=== PATIENT | female | born 1970 | race Caucasian/White ===

== ENCOUNTER 2016-05-01 11:52 | Emergency (ER) | payer MEDICAID ==
[~2016-05-01] VITALS: Ht 149.9 cm; Wt 71.5 kg
[~2016-05-01 11:52] MED LIST: CEPH-443 PO; FER325 PO; HYDR-3498 PO; NAPR-260 PO; PANT40TA3 PO; ULT50 PO; ZOLP5TAB6 PO
[2016-05-01 12:16] VITALS: Ht 149.9 cm; Wt 71.5 kg
[2016-05-01] MEDS ORDERED: traMADol 50 MG TAB PO ONE (13:00)
[2016-05-01] MEDS ORDERED: ONDANSETRON (ODT) 4 MG TAB ODT STA (13:05)
--- NOTE | 2016-05-01 13:05 | ERD ---
ER Documentation Chief Complaint Date/Time DATE: 05/01/16 TIME: 13:01 Chief Complaint headache, neck and shoulder pain x 2 months HPI Patient is a 45-year-old female here with a headache, neck pain, and right shoulder pain 2 months. She has nausea and photophobia associated with her headache. She denies any injury, accident, trauma, or fall. The onset of her pain was gradual and has been worsening over the last month. She denies sudden onset or thunderclap onset of her headache. She has tried taking Motrin without much relief. She states that she has never had a headache in her life. She denies chest pain, difficulty breathing, shortness of breath, visual changes, changes in mentation, changes in gait, or any other symptoms. Last menstrual period 04/28/16. ROS All systems reviewed and are negative except as per history of present illness. Medications Home Meds Active Scripts Ondansetron Hcl* (Zofran*) 4 Mg Tablet, 4 MG PO Q6H for NAUSEA AND/OR VOMITING, #9 TAB Prov:YISSEL MOHAUMD, [employer] 05/01/16 Tramadol HCl (Tramadol HCl) 50 Mg Tablet, 50 MG PO Q6 Y for PAIN, #9 TAB Prov:YISSEL MOHAMUD, [employer] 05/01/16 Ibuprofen* (Motrin*) 600 Mg Tab, 600 MG PO Q6, #30 TAB Prov:YISSEL MOHAMUD, [employer] 05/01/16 Ferrous Sulfate* (Ferrous Sulfate*) 325 Mg Tabec, 325 MG PO TID, #100 TAB Prov:BRAXTON SEYMOUR MD 12/31/14 Cephalexin* (Keflex*) 500 Mg Capsule, 500 MG PO QID for 5 Days, CAP Prov:BRAXTON SEYMOUR MD 12/31/14 Hydrocodone Bit-Acetaminophen* (Eads*) 5-325 Mg Tab, 1 TAB PO Q6 Y for PAIN, # 20 TAB Prov:BRAXTON SEYMOUR MD 12/31/14 Pantoprazole* (Protonix*) 40 Mg Tablet.dr, 40 MG PO DAILY, #30 TAB Prov:BRAXTON SEYMOUR MD 12/31/14 Tramadol HCl (Tramadol HCl) 50 Mg Tab, 50 MG PO Q6 Y for PAIN, #20 TAB Prov:VIRI ALONSO NP 12/14/14 Naproxen* (Naprosyn*) 500 Mg Tablet, 500 MG PO BID Y for PAIN AND/OR INFLAMMATION, #30 TAB Prov:VIRI ALONSO [employer] 12/14/14 Zolpidem Tartrate* (Zolpidem Tartrate*) 5 Mg Tablet, 5 MG PO HS Y for 10 Days, TAB Prov:MIRACLEBENOITDANIELA C 11/26/14 Tramadol HCl (Tramadol HCl) 50 Mg Tab, 50 MG PO Q4 Y for PAIN, #20 TAB Prov:DANIELA RAUSCH C 11/26/14 Reported Medications [None] No Conflict Check 06/12/12 Allergies Allergies: Coded Allergies: Penicillins (Verified Allergy, Unknown, RASH, 11/06/13) PMhx/Soc History of Surgery: No Anesthesia Reaction: No Hx Neurological Disorder: No Hx Respiratory Disorders: No Hx Cardiac Disorders: No Hx Psychiatric Problems: No Hx Miscellaneous Medical Probl: Yes (gastritis) Hx Alcohol Use: No Hx Substance Use: No Hx Tobacco Use: No Smoking Status: Never smoker Physical Exam Vitals Vital Signs Date Time Temp Pulse Resp B/P Pulse Ox O2 Delivery O2 Flow Rate FiO2 05/01/16 15:41 98.2 79 18 132/74 99 Room Air 05/01/16 12:16 98.8 93 18 126/94 99 Physical Exam INITIAL VITAL SIGNS: Reviewed by me, afebrile, no tachycardia, no hypertension GENERAL: Alert. Well developed and well nourished. No acute distress. Nontoxic- appearing. HEAD: Head is normocephalic. Atraumatic. EYES: EOMI. PERRL. No scleral icterus. No conjunctival injection. ENT: External ears, nose, and mouth normal. Nasal passages patent. Moist mucous membranes. NECK: Supple. Full range of motion. Trachea midline. RESPIRATORY: No tachypnea. Clear to auscultation bilaterally. No wheezing, rales , or rhonchi. CV: Regular rate and rhythm. No murmurs, rubs, or gallops ABDOMEN: Soft, non-distended, non-tender. No guarding. No rebound. No masses. Bowel sounds normal in all quadrants. BACK: No CVA tenderness. Full ROM. EXTREMITIES: No obvious deformity. No clubbing or cyanosis. No edema. Bilateral upper extremities with full range of motion, strength 5/5, sensation intact to light touch. Strong hand grasps. Radial pulses +2. No bony tenderness to palpation. Moderate myofascial tenderness to palpation of right pectoralis, right upper trapezius, right mid trapezius, and right rhomboid. SKIN: Warm and dry. No diaphoresis. No obvious rashes or lesions. NEUROLOGIC: Alert and oriented x 4. Appropriate. Face is symmetric. Speech is normal. Moves all extremities equally. No focal neurologic deficits. Negative Romberg. Cranial nerves II-XII grossly intact on exam. Results 24 hrs Laboratory Tests Test 05/01/16 13:11 Bedside Urine Blood 3+ Bedside Urine Glucose (UA) Negative Bedside Urine Ketones (LAB) Negative Bedside Urine Leukocyte Esterase (L Negative Bedside Urine Nitrite (LAB) Negative Bedside Urine Protein (LAB) 1+ Bedside Urine pH (LAB) 7.5 Current Medications Medications (Trade) Dose Ordered Sig/Re Route PRN Reason Start Time Stop Time Status Last Admin Dose Admin Tramadol HCl (Ultram) 50 mg ONCE ONCE PO 05/01/16 13:00 05/01/16 13:01 DC 05/01/16 13:15 Ondansetron HCl (Zofran Odt) 4 mg ONCE STAT ODT 05/01/16 13:05 05/01/16 13:06 DC 05/01/16 13:13 Ketorolac Tromethamine (Toradol) 30 mg ONCE STAT IM 05/01/16 15:17 05/01/16 15:18 DC 05/01/16 15:20 PROCEDURE: CT Brain without contrast. CLINICAL INDICATION: Headache. TECHNIQUE: A CT of the brain was performed on a [employer] 64-slice CT scanner utilizing axial imaging from the skull base through the vertex without IV contrast. Multiplanar reformatted images were made. Images were reviewed on a PACS workstation. The CTDIvol is 44.84 mGy and the DLP is 630.2 mGycm. One or the following dose reduction techniques were used: -Automated exposure control. -Adjustment of the mA and/or KV according to patient's size. -Use of iterative reconstruction technique. COMPARISON: None FINDINGS: There is no intracranial hemorrhage, mass effect, or midline shift. No extra- axial fluid collection is seen. The ventricles and sulci are normal in size and configuration. The density of the brain is normal, and the judd white matter differentiation appears well-preserved. The visualized paranasal sinuses and osseous structures are grossly unremarkable. IMPRESSION: 1. No evidence of acute intracranial pathology. 2. The brain has a normal appearance for patient's age. RPTAT: [facility] Physician Harvinder Date Time Electronically viewed and signed by Physician Harvinder on 05/01/2016 15: 06 Procedures/MDM Nursing Notes Reviewed Previous Medical Records requested via [employer]. EMERGENCY DEPARTMENT COURSE / MEDICAL DECISION MAKING: The patient comes to the ED secondary to headache, neck pain and right shoulder pain 2 months. Differential diagnosis upon initial evaluation includes but is not limited to: Brain bleed, aneurysm, brain lesion, migraine, tension type headache, and others. The case was discussed with supervising physician Dr. Seymour. Per supervising physician, will get head CT without contrast as the patient has never experienced a headache previously. The patient was treated with tramadol 50 mg p.o. and Zofran 4 mg p.o. On reassessment, patient states that her headache is not resolved completely. Her repeat physical exam was benign. Pending CT results, will give Toradol [address] without contrast as per radiology report: IMPRESSION: 1. No evidence of acute intracranial pathology. 2. The brain has a normal appearance for patient's age. EKG as ready by Dr. Kaplan, Normal sinus rhythm, 87 BPM, normal EKG Patient was given Toradol 30 mg IM. On reassessment, the patient states that her headache has completely resolved. Her repeat physical exam was benign. Final impression: 1. headache 2. Neck pain 3. Shoulder pain Based on patient's history of present illness and physical examination the decision was made to discharge. The patient was re-evaluated after ED treatment and stabilizing measures, and symptoms have improved. There is no evidence of life threatening injuries or illnesses at this time. Given that the patient had a benign physical exam, had full range of motion of her neck and bilateral upper extremities, denies any numbness or tingling, denies any loss of function, denied any history of trauma, I have low suspicion at this time for any serious cause of neck or shoulder pain including fracture, dislocation, or nerve injury. I believe that most likely her neck and shoulder pain are a result of muscle tightness or muscle spasm. Her physical exam was consistent with this. On re-examination, patient resting in no distress, stable vital signs, reports feeling better and safe for discharge with outpatient follow up with PMD in 1-2 days. Patient given return precautions. Prescriptions: Ibuprofen Tramadol Zofran Departure Diagnosis: Primary Impression: Headache Headache type: tension-type Headache chronicity pattern: acute headache Intractability: not intractable Qualified Code: G44.209 - Acute non intractable tension-type headache Condition: Stable YISSEL MOHAMUD NP May 01, 2016 13:05
[2016-05-01 13:11] LABS: URINE BLOOD (Dip) POC 3+ (NEGATIVE)
--- NOTE | 2016-05-01 15:06 | RADRPT ---
PROCEDURE: CT Brain without contrast. CLINICAL INDICATION: Headache. TECHNIQUE: A CT of the brain was performed on a [employer] 64-slice CT scanner utilizing axial imaging from the skull base through the vertex without IV contrast. Multiplanar reformatted images were made. Images were reviewed on a PACS workstation. The CTDIvol is 44.84 mGy and the DLP is 630 .2 mGycm. One or the following dose reduction techniques were used: -Automated exposure control. -Adjustment of the mA and/or KV according to patient's size. -Use of iterative reconstruction technique. COMPARISON: None FINDINGS: There is no intracranial hemorrhage, mass effect, or midline shift. No extra-axial fluid collection is seen. The ventricles and sulci are normal in size and configuration. The density of the brain is normal, and the judd white matter differentiation appears well-preserved. The visualized paranasal sinuses and osseous structures are grossly unremarkable. IMPRESSION: 1. No evidence of acute intracranial pathology. 2. The brain has a normal appearance for patient's age. RPTAT: [facility] Physician Harvinder Date Time Electronically viewed and signed by Physician Harvinder on 05/01/2016 15:06 /
[2016-05-01] MEDS ORDERED: ONDA4TAB8 PO (15:13)
[2016-05-01] MEDS ORDERED: IBUP-1542 PO (15:13)
[2016-05-01] MEDS ORDERED: ULT50 PO (15:13)
[2016-05-01] MEDS ORDERED: KETOROLAC 30 MG INJ IM STA (15:17)
[2016-05-01 15:41] VITALS: BP 132/74; PULSE 79; RESP 18; TEMP 98.2
== END 2016-05-01 15:42 | disposition home or self-care (01) ==
LOC: FTE 11:52
DX: G44.209 Tension-type headache, unspecified, not intractable (principal); R11.0 Nausea; M54.2 Cervicalgia; M25.511 Pain in right shoulder
CPT/HCPCS: 70450; 81003; 93005; 96372; J1885; Z7502; Z7610

== ENCOUNTER 2017-02-03 14:04 | Emergency (ER) | payer MEDICAID ==
[~2017-02-03] VITALS: Ht 157.5 cm; Wt 78.0 kg
[~2017-02-03 14:04] MED LIST changes: +IBUP-1542 PO; +ONDA4TAB8 PO; +TRAM50TA2 PO; -ULT50 PO; -ZOLP5TAB6 PO; +ZOLP5TAB7 PO
[2017-02-03 14:07] VITALS: Ht 157.5 cm; Wt 78.0 kg
[2017-02-03] MEDS ORDERED: KETOROLAC 30 MG INJ IM STA (15:56)
[2017-02-03 16:27] LABS: URINE BLOOD (Dip) POC 3+ (NEGATIVE)
--- NOTE | 2017-02-03 16:47 | ERD ---
ER Documentation Chief Complaint Date/Time DATE: 02/03/17 TIME: 16:37 Chief Complaint flu.body aches, chills HPI 46-year-old female presents to the emergency department brought in by daughter, complaining of 2 days of generalized arthralgia, subjective fever, chills and diffuse abdominal pain 4/10 and mild lower back pain . The patient reports urinary frequency but denies dysuria or gross hematuria. Treatment attempted: Motrin with mild improvement of her symptoms. ROS All systems reviewed and are negative except as per history of present illness. Medications Home Meds Active Scripts Ibuprofen* (Motrin*) 600 Mg Tab, 600 MG PO Q6 for pain/fever, #30 TAB Prov:AVERY DEXTER MD 02/03/17 Ciprofloxacin Hcl* (Ciprofloxacin Hcl*) 500 Mg Tablet, 500 MG PO BID for 3 Days , TAB Prov:AVERY DEXTER MD 02/03/17 Ondansetron Hcl* (Zofran*) 4 Mg Tablet, 4 MG PO Q6H for NAUSEA AND/OR VOMITING, #9 TAB Prov:YISSEL MOHAMUD, [employer] 05/01/16 Tramadol HCl (Tramadol HCl) 50 Mg Tablet, 50 MG PO Q6 Y for PAIN, #9 TAB Prov:YISSEL MOHAMUD, [employer] 05/01/16 Ibuprofen* (Motrin*) 600 Mg Tab, 600 MG PO Q6, #30 TAB Prov:YISSEL MOHAMUD, [employer] 05/01/16 Ferrous Sulfate* (Ferrous Sulfate*) 325 Mg Tabec, 325 MG PO TID, #100 TAB Prov:BRAXTON GONSALEZ MD 12/31/14 Cephalexin* (Keflex*) 500 Mg Capsule, 500 MG PO QID for 5 Days, CAP Prov:BRAXTON GONSALEZ MD 12/31/14 Hydrocodone Bit-Acetaminophen* (Azalea*) 5-325 Mg Tab, 1 TAB PO Q6 Y for PAIN, # 20 TAB Prov:BRAXTON GONSALEZ MD 12/31/14 Pantoprazole* (Protonix*) 40 Mg Tablet.dr, 40 MG PO DAILY, #30 TAB Prov:BRAXTON GONSALEZ MD 12/31/14 Tramadol HCl (Tramadol HCl) 50 Mg Tab, 50 MG PO Q6 Y for PAIN, #20 TAB Prov:VIRI ALONSO [employer] 12/14/14 Naproxen* (Naprosyn*) 500 Mg Tablet, 500 MG PO BID Y for PAIN AND/OR INFLAMMATION, #30 TAB Prov:CELESTEVIRI [employer] 12/14/14 Zolpidem Tartrate* (Zolpidem Tartrate*) 5 Mg Tablet, 5 MG PO HS Y for 10 Days, TAB Prov:MIRACLEDANIELA C 11/26/14 Tramadol HCl (Tramadol HCl) 50 Mg Tab, 50 MG PO Q4 Y for PAIN, #20 TAB Prov:MIRACLE,DANIELA C 11/26/14 Reported Medications [None] No Conflict Check 06/12/12 Allergies Allergies: Coded Allergies: Penicillins (Verified Allergy, Unknown, RASH, 11/06/13) PMhx/Soc History of Surgery: No Anesthesia Reaction: No Hx Neurological Disorder: No Hx Respiratory Disorders: No Hx Cardiac Disorders: No Hx Psychiatric Problems: No Hx Miscellaneous Medical Probl: Yes (gastritis) Hx Alcohol Use: No Hx Substance Use: No Hx Tobacco Use: No Smoking Status: Never smoker Physical Exam Vitals Vital Signs Date Time Temp Pulse Resp B/P Pulse Ox O2 Delivery O2 Flow Rate FiO2 02/03/17 14:07 100.2 92 20 156/76 99 Physical Exam Resp: Clear to auscultation bilaterally Cardio: Regular rate and rhythm, no murmurs Abd: Soft, mild diffuse tenderness, non distended. No peritoneal signs Back: No midline or flank tenderness. Full ROM, no vertebral tenderness Ext: No cyanosis, or edema Neur: Awake and alert Results 24 hrs Laboratory Tests Test 02/03/17 16:35 Bedside Urine pH (LAB) 7.0 Bedside Urine Protein (LAB) Negative Bedside Urine Glucose (UA) Negative Bedside Urine Ketones (LAB) Negative Bedside Urine Blood 3+ Bedside Urine Nitrite (LAB) Negative Bedside Urine Leukocyte Esterase (L Negative Current Medications Medications (Trade) Dose Ordered Sig/Re Route PRN Reason Start Time Stop Time Status Last Admin Dose Admin Ketorolac Tromethamine (Toradol) 30 mg ONCE STAT IM 02/03/17 15:56 02/03/17 15:59 DC 02/03/17 16:13 Procedures/MDM Abdominal pain: No suspicion for acute abdomen. Clinical presentation most likely consistent with urinary tract infection, urine dip showed 3+ hematuria. We will start treatment with antibiotics and follow-up with her primary doctor in 2-4 days Departure Diagnosis: Primary Impression: Abdominal pain Additional Impressions: Back pain Abnormal urine finding Condition: Stable AVERY DEXTER MD Feb 03, 2017 16:47 AVERY DEXTER MD Feb 03, 2017 16:47
[2017-02-03] MEDS ORDERED: IBUP-1542 PO (16:50)
[2017-02-03] MEDS ORDERED: CIPR500T4 PO (16:50)
[2017-02-03 17:09] VITALS: BP 142/72; PULSE 66; RESP 18; TEMP 99.8
== END 2017-02-03 17:12 | disposition home or self-care (01) ==
LOC: FTE 14:04
DX: R10.84 Generalized abdominal pain (principal); M54.9 Dorsalgia, unspecified; R82.99 Other abnormal findings in urine
CPT/HCPCS: 81003; 96372; J1885; Z7502

== ENCOUNTER 2017-10-16 07:37 | Emergency (ER) | END 2017-10-16 09:56 | disposition home or self-care (01) ==